=== PATIENT | female | born 1980 | race Caucasian/White ===

== ENCOUNTER 2020-11-03 12:18 | Outpatient (NON) | payer OTHER, SELFPAY ==
[2020-11-04 00:37] LABS: SARS-CoV-2 RNA PCR Negative
== END 2020-11-03 12:19 ==
PROVIDERS: PCP Family Medicine; Visit Provider Physician Assistant
DX: Z20.822 Contact with and (suspected) exposure to COVID-19 (principal); R05 Cough
CPT/HCPCS: C9803; U0003; U0005

== ENCOUNTER 2021-09-09 14:04 | Outpatient (CLI) | payer OTHER, SELFPAY ==
[2021-09-09 15:15] LABS: SARS-CoV-2 RNA PCR Negative (Negative)
== END 2021-09-09 14:05 | disposition home or self-care (01) ==
LOC: CHSLAB 14:06
PROVIDERS: PCP Family Medicine; Visit Provider Physician Assistant
DX: Z20.822 Contact with and (suspected) exposure to COVID-19 (principal)
CPT/HCPCS: C9803; U0003; U0005

== ENCOUNTER 2022-01-03 12:14 | Outpatient (CLI) | payer OTHER, SELFPAY ==
[2022-01-03 14:34] LABS: SARS-CoV-2 RNA PCR Negative (Negative)
== END 2022-01-03 12:15 | disposition home or self-care (01) ==
PROVIDERS: PCP Family Medicine; Visit Provider Family Medicine
DX: Z20.822 Contact with and (suspected) exposure to COVID-19 (principal)
CPT/HCPCS: C9803; U0003; U0005

== ENCOUNTER 2022-06-03 07:58 | Outpatient (CLI) | payer OTHER, SELFPAY ==
[2022-06-03 09:18] LABS: Basophils Absolute Auto 0.1 K/mm3 (0.0-0.1); Basophils Percent Auto 1.6 % (0.2-1.2); Eosinophils Absolute Auto 0.3 K/mm3 (0-0.3); Eosinophils Percent Auto 4.3 % (0-4.4); Hemoglobin 13.4 g/dL (12.0-15.0); Immature Granulocyte Absolute 0.03 K/mm3 (0.00-0.031); Immature Granulocyte Percent A 0.4 % (0-0.5); Lymphocytes Absolute Auto 1.86 K/mm3 (0.9-3.2); Lymphocytes Percent Auto 26.7 % (18.3-44.2); Mean Corpuscular HGB Conc 33.5 g/dl (32-36); Mean Corpuscular Hemoglobin 28.5 pg (26-34); Mean Corpuscular Volume 85.1 fl (80-100); Mean Platelet Volume 11.4 fl (7.4-10.4); Monocytes Absolute Auto 0.7 K/mm3 (0.1-0.6); Monocytes Percent Auto 9.5 % (2.6-8.5); Neutrophils Percent Auto 57.5 % (45.5-73.1); Platelet Count Result 228 k/mm3 (150-375); Red Cell Distribution Width 13.4 % (11.5-14.5)
[2022-06-03 09:49] LABS: Erythrocyte Sedimentation Rate 10 mm/hr (0-20)
[2022-06-08 14:06] LABS: CRP, High Sensitivity 2.7 mg/L (***)
== END 2022-06-03 07:59 | disposition home or self-care (01) ==
PROVIDERS: PCP Family Medicine
DX: T84.54XA Infection and inflammatory reaction due to internal left knee prosthesis, initial encounter (principal)
CPT/HCPCS: 36415; 85025; 85652; 86141

== ENCOUNTER 2022-10-05 13:08 | Outpatient (CLI) | payer OTHER, SELFPAY ==
--- NOTE | ~2022-10-05 | XR_ITS ---
XR chest 2V DATE: 10/05/2022 13:24 INDICATION: Chest congestion and cough for 2 weeks TECHNIQUE: PA and lateral views COMPARISON: 09/04/2015 2 view chest FINDINGS: Normal heart size. No hilar or mediastinal enlargement. No pulmonary infiltrate or consolid ation, pleural effusion or pulmonary vascular congestion or pneumothorax. There are 2 lower thoracic spinal electrodes. There is mild degenerative spurring of the thoracic spi ne. IMPRESSION: No active cardiopulmonary disease Reviewed, dictated and finalized at location B. ICAL TRAINING COORDINATOR
--- NOTE | 2022-10-05 13:30 | ECG_ITS ---
Measurements Intervals [place] Rate: 108 P: 62 [place]: 179 QRS: 15 QRSD: 90 T: 45 QT: 314 QTc: 421 Interpretive Statements SINUS TACHYCARDIA DELAYED PRECORDIAL R/S TRANSITION BASELINE ARTIFACT- I, II, III, AVR, AVL, AVF, V1 ABNORMAL ECG NO PREVIOUS ECG AVAILABLE FOR COMPARISON Electronically Signed On 10-05-2022 13:46:42 [employer]ORTER by Alonso Wilks D.O.
== END 2022-10-05 13:09 | disposition home or self-care (01) ==
PROVIDERS: PCP Family Medicine; Visit Provider Physician Assistant Medical
DX: R06.00 Dyspnea, unspecified (principal); R94.31 Abnormal electrocardiogram [ECG] [EKG]
CPT/HCPCS: 71046; 93005

== ENCOUNTER 2023-05-17 11:25 | Outpatient (CLI) | payer OTHER, SELFPAY ==
[2023-05-21 11:36] LABS: FSH 4.9 mIU/mL (***); Progesterone 8.4 ng/mL (***)
[2023-05-24 21:45] LABS: Estradiol, Ultrasensitive 70 pg/mL
== END 2023-05-17 11:26 | disposition home or self-care (01) ==
LOC: ANHLAB 11:28
PROVIDERS: PCP Family Medicine; Visit Provider Obstetrics & Gynecology
DX: R23.2 Flushing (principal)
CPT/HCPCS: 36415; 82670; 83001; 84144; 84443

== ENCOUNTER 2023-06-01 07:57 | Outpatient (CLI) | payer OTHER, SELFPAY ==
[2023-06-01 09:10] LABS: Alanine Aminotransferase 31 U/L (6-35); Albumin Level 4.5 g/dL (3.5-5.1); Alkaline Phosphatase 69 U/L (38-126); Anion Gap 4 mmol/L (8-16); Aspartate Amino Transferase 28 U/L (14-36); Bilirubin,Total 0.5 mg/dL (0.2-1.3); Blood Urea Nitrogen 12 mg/dL (7-17); Calcium 10.5 mg/dL (8.4-10.2); Carbon Dioxide 31 mmol/L (22-30); Chloride 102 mmol/L (98-107); Cholesterol 195 mg/dL (0-200); Estimated Glomerular Filt Rate > 60; Glucose 94 mg/dL (65-110); HDL Direct 50 mg/dL; Sodium 137 mmol/L (137-145); Triglycerides 58 mg/dL (<150)
[2023-06-01 09:13] LABS: Basophils Absolute Auto 0.1 K/mm3 (0.0-0.1); Basophils Percent Auto 1.5 % (0.2-1.2); Eosinophils Absolute Auto 0.3 K/mm3 (0-0.3); Eosinophils Percent Auto 3.9 % (0-4.4); Hematocrit 42.6 % (37.0-47.0); Hemoglobin 14.2 g/dL (12.0-15.0); Immature Granulocyte Absolute 0.03 K/mm3 (0.00-0.031); Immature Granulocyte Percent A 0.4 % (0-0.5); Lymphocytes Absolute Auto 1.57 K/mm3 (0.9-3.2); Lymphocytes Percent Auto 21.1 % (18.3-44.2); Mean Corpuscular HGB Conc 33.3 g/dl (32-36); Mean Corpuscular Hemoglobin 29.5 pg (26-34); Mean Corpuscular Volume 88.4 fl (80-100); Mean Platelet Volume 11.2 fl (7.4-10.4); Monocytes Absolute Auto 0.7 K/mm3 (0.1-0.6); Monocytes Percent Auto 9.4 % (2.6-8.5); Neutrophils Absolute Auto 4.8 K/mm3 (1.3-6.7); Neutrophils Percent Auto 63.7 % (45.5-73.1); Platelet Count Result 233 k/mm3 (150-375); Red Blood Count 4.82 M/mm3 (4.2-5.4); White Blood Count 7.5 K/mm3 (4.5-10.0)
[2023-06-01 09:21] LABS: LDL Cholesterol Direct 119 mg/dL
[2023-06-01 09:25] LABS: Iron 118 ug/dL (37-170)
[2023-06-01 09:39] LABS: Percent Iron Saturation 34 % (20-50)
[2023-06-01 09:45] LABS: Erythrocyte Sedimentation Rate 1 mm/hr (0-20)
[2023-06-02 15:55] LABS: Vitamin D 25 Hydroxy 42.7 ng/mL
== END 2023-06-01 07:58 | disposition home or self-care (01) ==
PROVIDERS: PCP Family Medicine; Visit Provider Family Medicine
DX: G25.81 Restless legs syndrome (principal); R53.83 Other fatigue; E78.2 Mixed hyperlipidemia; E11.9 Type 2 diabetes mellitus without complications; I10 Essential (primary) hypertension; G89.29 Other chronic pain; M25.559 Pain in unspecified hip; M54.2 Cervicalgia; E55.9 Vitamin D deficiency, unspecified
CPT/HCPCS: 36415; 80053; 80061; 82306; 82728; 83036; 83540; 83550; 85025; 85652

== ENCOUNTER 2023-07-31 10:03 | Outpatient (CLI) | payer OTHER, SELFPAY ==
[2023-07-31 10:53] LABS: Parathyroid Intact 119.9 pg/mL (7.5-53.5)
[2023-08-02 15:57] LABS: Ionized Calcium 5.4 mg/dL (4.7-5.5)
== END 2023-07-31 10:04 | disposition home or self-care (01) ==
LOC: ANHLAB 10:04
PROVIDERS: PCP Family Medicine; Visit Provider Physician Assistant
DX: E83.52 Hypercalcemia (principal)
CPT/HCPCS: 36415; 82330; 83970

== ENCOUNTER 2024-04-22 13:27 | Outpatient (CLI) | payer OTHER, SELFPAY | END 2024-04-22 13:28 | disposition home or self-care (01) | LOC: ANHAUDASC 13:28 | PROVIDERS: PCP Family Medicine; Visit Provider Otolaryngology | DX: H66.90 Otitis media, unspecified, unspecified ear (principal); J32.2 Chronic ethmoidal sinusitis; J30.2 Other seasonal allergic rhinitis | CPT/HCPCS: 92557; 92567 ==